=== PATIENT | female | born 1995 | race Hispanic/Latino ===

== ENCOUNTER 2017-02-22 06:08 | Emergency (ER) | payer OTHER ==
[2017-02-22 06:24] VITALS: O2SAT 100
[2017-02-22] MEDS ORDERED: Sodium Chloride 0.9% 1,000 ML IV STA (06:37)
--- NOTE | 2017-02-22 06:43 | ED PDOC ---
HPI: Female Pain Time Seen by Provider: 02/22/17 06:30 Chief Complaint (Nursing): Abdominal Pain Chief Complaint (Provider): vaginal bleeding, abd pain History Per: Patient History/Exam Limitations: no limitations Onset/Duration Of Symptoms: Days Current Symptoms Are (Timing): Still Present Additional Complaint(s): 22yo female with PMHx including bicornuate uterus presents to the ED with c/o vaginal bleeding x2 weeks with associated lower abdominal pain. Patient states she has been changing pads 8x per day. Notes occasional lightheadedness, dizziness, and b/l lower abdominal cramping. Patient states she had similar problem 1 year ago, but currently worse. COMMUNICATIONS FIELD TECHNICIAN: Dr. Addie Avila Past Medical History Reviewed: Historical Data, Nursing Documentation, Vital Signs Vital Signs: Last Vital Signs Temp 98.7 F 02/22/17 06:22 Pulse 70 02/22/17 06:22 Resp 16 02/22/17 06:22 BP 117/74 02/22/17 06:22 Pulse Ox 100 02/22/17 06:22 - Medical History Other PMH: bicornuate uterus - Surgical History Surgical History: No Surg Hx - Family History Family History: States: No Known Family Hx - Allergies Allergies/Adverse Reactions: Allergies Allergy/AdvReac Type Severity Reaction Status Date / Time No Known Allergies Allergy Verified 02/22/17 06:22 Review of Systems ROS Statement: Except As Marked, All Systems Reviewed And Found Negative Constitutional: Positive for: Other (lightheadedness ) Gastrointestinal: Positive for: Abdominal Pain Genitourinary Female: Positive for: Vaginal Bleeding Neurological: Positive for: Dizziness Physical Exam - Reviewed Nursing Documentation Reviewed: Yes Vital Signs Reviewed: Yes - Physical Exam Appears: Positive for: Well, No Acute Distress Head Exam: Positive for: ATRAUMATIC, NORMAL INSPECTION, NORMOCEPHALIC Skin: Positive for: Normal Color, Warm, Dry Eye Exam: Positive for: Normal appearance, EOMI, PERRL ENT: Positive for: Normal ENT Inspection Neck: Positive for: Normal, Painless ROM, Supple Cardiovascular/Chest: Positive for: Regular Rate, Rhythm. Negative for: Murmur , Tachycardia Respiratory: Positive for: Normal Breath Sounds. Negative for: Wheezing, Respiratory Distress Gastrointestinal/Abdominal: Positive for: Normal Exam, Bowel Sounds, Soft. 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 Negative for: Tender W/Cervical Motion Back: Positive for: Normal Inspection. Negative for: L CVA Tenderness, R CVA Tenderness Extremity: Positive for: Normal ROM. Negative for: Deformity, Swelling Neurologic/Psych: Positive for: Alert, Oriented. Negative for: Motor/Sensory Deficits - ECG O2 Sat by Pulse Oximetry: 100 Pulse Ox Interpretation: Normal (RA) Medical Decision Making Medical Decision Makin: Impression: dysfunctional uterine bleeding Plan: Labs IVF, Toradol 15mg IVP US transvaginal reassess Patient s/o to Dr. Kelly at 0700 pending labs, US, re-eval. Scribe Attestation: Documented by Vadim Mcgraw acting as a scribe for Homero Woody MD. Provider Scribe Attestation: All medical record entries made by the Scribe were at my direction and personally dictated by me. I have reviewed the chart and agree that the record accurately reflects my personal performance of the history, physical exam, medical decision making, and the department course for this patient. I have also personally directed, reviewed, and agree with the discharge instructions and disposition. Disposition - Clinical Impression Clinical Impression: Vaginal bleeding, Dysfunctional uterine bleeding - Patient ED Disposition Is Patient to be Admitted: Transfer of Care - Disposition Referrals: Addie Avila MD [Non-Staff] - Disposition: Transfer of Care Disposition Time: 07:00 Condition: STABLE Patient Signed Over To: Richard Kelly III Handoff Comments: pending labs, US, re-eval
[2017-02-22 06:53] LABS: BASO % 0.7 % (0.0-2.0); EOS # 0.2 K/uL (0.0-0.7); EOS % 3.3 % (0.0-4.0); HEMATOCRIT 39.4 % (34.0-47.0); LYMPH # 2.6 K/uL (1.0-4.3); LYMPH % 44.3 % (20.0-40.0); MEAN CORPUSCULAR HEMOGLOBIN 31.5 pg (27.0-31.0); MEAN CORPUSCULAR HGB CONC 33.5 g/dL (33.0-37.0); MEAN PLATELET VOLUME 10.5 fl (7.2-11.7); MONO # 0.4 K/uL (0.0-0.8); NEUT # 2.6 K/uL (1.8-7.0); NEUT % 44.7 % (50.0-75.0); NRBC % 0.1 % (0.0-0.0); RED CELL DISTRIBUTION WIDTH 12.3 % (11.5-14.5); WHITE BLOOD COUNT 5.9 K/uL (4.8-10.8)
[2017-02-22 07:09] LABS: ALB/GLOB RATIO 1.3 (1.0-2.1); ALKALINE PHOSPHATASE 45 U/L (38-126); ALT/SGPT 24 U/L (9-52); AST/SGOT 20 U/L (14-36); BILIRUBIN,TOTAL 0.4 mg/dl (0.2-1.3); BLOOD UREA NITROGEN 14 mg/dl (7-17); CALCIUM 8.9 mg/dL (8.4-10.2); CARBON DIOXIDE 21 mmol/L (22-30); CHLORIDE 106 mmol/L (98-107); GFR AFRICAN-AMERICAN > 60; GLUCOSE,RANDOM 92 mg/dL (65-105); POTASSIUM 4.2 MMOL/L (3.6-5.0); SODIUM 141 mmol/l (132-148)
--- NOTE | 2017-02-22 07:11 | ED PDOC ---
- Laboratory Results Result Diagrams: 02/22/17 06:47 02/22/17 06:47 - ECG O2 Sat by Pulse Oximetry: 100 Medical Decision Making Medical Decision Making: Time: 0700 Patient signed out by Dr. Woody pending status, labs, U/S and re- evaluation labs unremarkable HCG neg Hgb 13.5 US prelim reviewed. Pt wants to leave ED, has appt w her OB on [address] today, given copies of bloodwork. Scribe Attestation: Documented by Mckayla Flores acting as a scribe for Richard Kelly DO MD Scribe Attestation: All medical record entries made by the Scribe were at my direction and personally dictated by me. I have reviewed the chart and agree that the record accurately reflects my personal performance of the history, physical exam, medical decision making, and the department course for this patient. I have also personally directed, reviewed, and agree with the discharge instructions and disposition. Disposition - Clinical Impression Clinical Impression: Vaginal bleeding, Dysfunctional uterine bleeding - Disposition Referrals: Addie Avila MD [Non-Staff] - Condition: STABLE Additional Instructions: Speak to County Surveyor about possible changing control medication, or about other testing or treatment necessary. Instructions: Dysmenorrhea (ED), Menorrhagia (ED)
[2017-02-22 10:31] VITALS: BP 122/68; PULSE 78; RESP 14; TEMP 98
--- NOTE | 2017-02-22 11:20 | US ---
HISTORY: lower abd pain, VB COMPARISON: None available. TECHNIQUE: Transvaginal FINDINGS: UTERUS: Reported history of bicornuate uterus. Bicornuate status not clearly demonstrated no 2 separate horns are identified. Right horn measures 6.9 cm in length and 4.1 cm anterior-posterior. Leftward measures 6.8 cm in length and 3.9 cm anterior-posterior. Combined uterus measures 6.1 cm transversely. Right horn endometrium 10 mm. (Endometrium 11 mm. Trace fluid seen within endometrial cavity of right horn. ENDOMETRIUM: Measures as above mm in diameter. CERVIX: No cervical abnormality identified. RIGHT OVARY: Measures 3.1 x 3.4 x 1.7 cm. No solid mass. Normal flow. LEFT OVARY: Measures 2.3 x 3.3 x 1.7 cm. No solid mass. Normal flow. FREE FLUID: No significant free fluid noted. OTHER FINDINGS: None. IMPRESSION: Findings consistent with uterine duplication anomaly. No clear demonstration of sub septate versus septate versus bicornuate uterus on the basis of this examination. Two endometrial stripes are identified. Trace endometrial fluid in the right cornu. Otherwise unremarkable.
== END 2017-02-22 10:31 | disposition home or self-care (01) ==
LOC: H.ER 06:08
DX: N93.9 Abnormal uterine and vaginal bleeding, unspecified (principal); R10.9 Unspecified abdominal pain